=== PATIENT | male | born 1990 | race Caucasian/White ===

== ENCOUNTER 2017-10-10 14:55 | Observation (INO) | payer MEDICAID, OTHER ==
--- NOTE | 2017-10-10 16:34 | ED PDOC ---
HPI: Psych/Substance Abuse Time Seen by Provider: 10/10/17 15:12 Chief Complaint (Nursing): Alcohol Ingestion Chief Complaint (Provider): Alcohol Ingestion History Per: Patient History/Exam Limitations: no limitations Modifying Factor(s): Alcohol Additional Complaint(s): 27 y/o male is brought to the ED for alcohol intoxication. Patient admits to drinking heavily since last night up until this morning. He states thata he is "good". Denies trauma, injury, headache, dizziness, abdominal pain, shortness of breath, nausea or any further medical complaints. Past Medical History Reviewed: Historical Data, Nursing Documentation, Vital Signs Vital Signs: Last Vital Signs Temp 97.8 F 10/10/17 14:57 Pulse 88 10/10/17 14:57 Resp 20 10/10/17 14:57 BP 154/1 H 10/10/17 14:57 Pulse Ox 98 10/10/17 14:57 - Medical History PMH: Denies: Diabetes, Hepatitis, HIV, HTN, Seizures, Sexually Transmitted Disease - Surgical History Surgical History: Cholecystectomy - Family History Family History: States: Unknown Family Hx - Social History Current smoker - smoking cessation education provided: No (Former Smoker) Alcohol: None Drugs: Other (Marijuana) - Immunization History Hx Influenza Vaccination: No - Home Medications Home Medications: Ambulatory Orders Medication Instructions Recorded Labetalol [Trandate] 100 mg PO Q12H #60 tab 11/11/15 - Allergies Allergies/Adverse Reactions: Allergies Allergy/AdvReac Type Severity Reaction Status Date / Time No Known Allergies Allergy Verified 10/10/17 14:57 Review of Systems ROS Statement: Except As Marked, All Systems Reviewed And Found Negative (As per HPI, otherwise negative) Neurological: Positive for: Other (Alcohol intoxication) Physical Exam - Reviewed Nursing Documentation Reviewed: Yes Vital Signs Reviewed: Yes - Physical Exam Comments: GENERAL APPEARANCE: Patient is awake, alert, in no acute distress. Patient smells of alcohol. SKIN: Warm, dry; (-) cyanosis, (-) rash. (-) Abrasion to R [employer]. EYES: (-) conjunctival pallor, (-) scleral icterus. ENMT: Mucous membranes are moist. Airway patent: (-) stridor. NECK: (-) tenderness, (-) stiffness, (-) meningismus, (-) lymphadenopathy. CHEST AND RESPIRATORY: (-) accessory muscle use. Lungs: (-) rales, (-) rhonchi, (-) wheezes, (-) rub; breath sounds equal bilaterally. HEART AND CARDIOVASCULAR: (-) irregularity; (-) murmur, (-) gallop, (-) rub. ABDOMEN AND GI: Soft; (-) tenderness, (-) guarding; (-) organomegaly; (-) mass. EXTREMITIES: (-) deformity, (-) tenderness, (+) FROM, (+) distal pulses, (+) normal cap refill. NEURO AND PSYCH: Mental status as above; (-) focal findings. - Laboratory Results Result Diagrams: 10/10/17 17:15 10/10/17 17:15 - ECG O2 Sat by Pulse Oximetry: 98 (RA) Pulse Ox Interpretation: Normal Medical Decision Making Medical Decision Making: Time: 15:30 Initial Impression: Alcohol Intoxication Plan: CT Head w/o contrast Alcohol serum Drug screen Zofran 8mg IM Finger stick (glucose, blood, POC) Time: 15:50 --FS 96 --As farm operations technical director was drawing labs on patient, the farm operations technical director observed the patient to have an episode of vomiting --Patient was sitting up and vomited on himself and the floor --Patient states that he feels better, no longer nauseous and no abdominal pain --Patient is medicated with Zofran 8mg IM --Alcohol level 316 Time: 16:[address] FINDINGS: HEMORRHAGE: No intracranial hemorrhage. BRAIN: No mass effect or edema. No atrophy or chronic microvascular ischemic changes. VENTRICLES: Unremarkable. No hydrocephalus. CALVARIUM: Unremarkable. PARANASAL SINUSES: Unremarkable as visualized. No significant inflammatory changes. MASTOID AIR CELLS: Unremarkable as visualized. No inflammatory changes. OTHER FINDINGS: None. IMPRESSION: No acute intracranial abnormalities. No significant findings to account for the clinical presentation. Time: 16:46 --Patient vomitted when returned from CT, labs ordered, banana bag and Zofran IV --Patient is continuing to get up and ambulate in ER, however his gait is still unsteady --Will have to place him on one on one observation for safety Time: 19:45 --Labs reviewed : WBC 16.4, Na 151, AST 182/ALT 106, Lipase 3771. --On re-evaluation, patient more awake, alert, no slurred speech, reports no nausea or abdominal pain at this time. States that he drinks every weekend, but admits to drinking heavily this weekend, denies any h/o prior pancreatitis. On exam, abdomen remains soft with no tenderness to deep palpation, no guarding and no rebound. --Case endorsed to ER MD Dr. Arzate. Plan to admit patient under the hospitalist service to tele. Scribe Attestation: Documented by Viola Pierce acting as a scribe for PA. DAVE Preciado PA-C Scribe Attestation: All medical record entries made by the Scribe were at my direction and personally dictated by me. I have reviewed the chart and agree that the record accurately reflects my personal performance of the history, physical exam, medical decision making, and the department course for this patient. I have also personally directed, reviewed, and agree with the discharge instructions and disposition. Disposition - Clinical Impression Clinical Impression: Alcohol intoxication, Acute alcoholic pancreatitis - Patient ED Disposition Is Patient to be Admitted: Yes Counseled Patient/Family Regarding: Studies Performed, Diagnosis - Disposition Disposition Time: 20:00 Condition: STABLE Forms: [employer] ([employer]) - PA / JAVA DEVELOPMENT TEAM LEAD / Resident Statement YAS has reviewed & agrees with the documentation as recorded. YAS has examined the patient and agrees with the treatment plan.
--- NOTE | 2017-10-10 16:42 | CT ---
PROCEDURE: CT HEAD WITHOUT CONTRAST. HISTORY: possible head injury COMPARISON: None available. TECHNIQUE: Axial computed tomography images were obtained through the head/brain without intravenous contrast. Radiation dose: Total exam DLP = 68928 mGy-cm. This CT exam was performed using one or more of the following dose reduction techniques: Automated exposure control, adjustment of the mA and/or kV according to patient size, and/or use of iterative reconstruction technique. FINDINGS: HEMORRHAGE: No intracranial hemorrhage. BRAIN: No mass effect or edema. No atrophy or chronic microvascular ischemic changes. VENTRICLES: Unremarkable. No hydrocephalus. CALVARIUM: Unremarkable. PARANASAL SINUSES: Unremarkable as visualized. No significant inflammatory changes. MASTOID AIR CELLS: Unremarkable as visualized. No inflammatory changes. OTHER FINDINGS: None. IMPRESSION: No acute intracranial abnormalities. No significant findings to account for the clinical presentation.
[2017-10-10] MEDS ORDERED: Multivitamin (MVI) 10 ML, Thiamine 100 MG, Folic Acid 1 MG in Dextrose 5%/0.45% NS 1,00... IV ONE (17:00)
[2017-10-10 17:42] LABS: ALB/GLOB RATIO 1.1 (1.0-2.1); ALBUMIN 4.7 g/dL (3.5-5.0); ALT/SGPT 106 U/L (21-72); AST/SGOT 182 U/L (17-59); BLOOD UREA NITROGEN 9 mg/dl (9-20); CALCIUM 9.4 mg/dL (8.4-10.2); GFR AFRICAN-AMERICAN > 60; GFR NON-AFRICAN AMERICAN > 60
[2017-10-10 17:50] LABS: BASO # 0.1 K/uL (0.0-0.2); BASO % 0.3 % (0.0-2.0); EOS % 0.3 % (0.0-4.0); HEMOGLOBIN 16.9 g/dL (12.0-18.0); LYMPH # 1.6 K/uL (1.0-4.3); LYMPH % 9.7 % (20.0-40.0); MEAN CELL VOLUME 89.4 fl (80.0-94.0); MEAN CORPUSCULAR HEMOGLOBIN 30.8 pg (27.0-31.0); MEAN CORPUSCULAR HGB CONC 34.5 g/dL (33.0-37.0); MEAN PLATELET VOLUME 9.1 fl (7.2-11.7); MONO # 0.7 K/uL (0.0-0.8); MONO % 4.3 % (0.0-10.0); NEUT % 85.4 % (50.0-75.0); NRBC % 0.2 % (0.0-0.0); PLATELET COUNT 326 K/uL (130-400); RBC 5.48 Mil/uL (4.40-5.90); RED CELL DISTRIBUTION WIDTH 12.7 % (11.5-14.5); WHITE BLOOD COUNT 16.4 K/uL (4.8-10.8)
[2017-10-10 17:53] LABS: LIPASE 3771 U/L (23-300)
[2017-10-10 18:31] LABS: BANDS 1 % (0-2); LYMPHOCYTE 10 % (20-50); MONOCYTE 2 % (0-10); NEUTROPHIL 86 % (42-75); PLATELET ESTIMATE NORMAL (NORMAL); REACTIVE LYMPHOCYTES 1 % (0-0); TOTAL CELLS COUNTED 100
[2017-10-10] MEDS ORDERED: Lactated Ringer's 1,000 ML IV STA ×3 (19:45→19:46)
[2017-10-10] MEDS ORDERED: Piperacillin/Tazobact 3.375 GM in Sodium Chloride 0.9% 100 ML IV STA (19:52)
--- NOTE | 2017-10-10 19:55 | ED PDOC ---
- Laboratory Results Result Diagrams: 10/11/17 04:25 10/11/17 04:25 - ECG O2 Sat by Pulse Oximetry: 98 (RA) Pulse Ox Interpretation: Normal - Critical Care Total Time (In Min): 60 Documented Critical Care: Time excludes all time spent performint seperately billable procedures Medical Decision Making Medical Decision Making: Time: 1899 Patient signed out to me by Dr. Dela Cruz pending labs. Time: 1952 Labs reviewed and lipase is markedly elevated. Labs, blood culture, 3L LR, Zosyn IV, and ABG ordered. Time: [address] Dubon, hospitalist x ray electronics wireman who will admit patient for acute pancreatitis and alcohol intoxication. Time: [address] Todd who is covering Dr. Dupont (GI), who agrees with management plan. Also advised no indication for Zosyn or imaging at present. Recommended protonix, so [address] Todd to evaluate patient tomorrow. Scribe Attestation: Documented by Lisette Powell acting as a scribe for Miguel Ángel Arzate MD. Provider Attestation: All medical record entries made by the Scribe were at my direction and personally dictated by me. I have reviewed the chart and agree that the record accurately reflects my personal performance of the history, physical exam, medical decision making, and the department course for this patient. I have also personally directed, reviewed, and agree with the discharge instructions and disposition. Disposition - Clinical Impression Clinical Impression: Alcohol intoxication, Acute alcoholic pancreatitis - POA Present On Arrival: None - Disposition Disposition: Routine/Home Disposition Time: 19:00 Condition: STABLE
--- NOTE | 2017-10-10 20:27 | CP.PCM.HP ---
History of Present Illness - History of Present Illness History of Present Illness: PMD: None Chief Complaint: Alcohol Intoxication/ Amnesia The patient was seen and examined in the ED HPI: 27 years old male with hx of liver problem and Alcohol abuse, was brought to the ED for Alcohol Intoxication. He apparently was drinking Alcohol from the pervious night. The patient cannot remember how he got to the ED, nor can he recall the bruise at the right side of the face. He referred no headache , dizziness, Chest pain nor palpitation. In the ED he had an episode of significant non bloody vomiting. His lipase was elevated at 3771 and Alcohol 316 PMH: Vitiligo; liver problem; Febril seizure as a child; PSH: Cholecystectomy 2011 [facility]; Former Smoker; Alcohol Abuse; Marijuana use; live with family FH: Father and grandmother with Dm Allergies: NKDA Medication: denies Present on Admission - Present on Admission Any Indicators Present on Admission: No History of DVT/PE: No History of Uncontrolled Diabetes: No Urinary Catheter: No Decubitus Ulcer Present: No Review of Systems - Constitutional Constitutional: absent: Anorexia, Chills, Fever, Headache - EENT Eyes: absent: Diplopia, Photophobia, Requires Corrective Lenses, Sees Flashes, Loss of Vision Ears: absent: Decreased Hearing, Ear Discharge Nose/Mouth/Throat: absent: Epistaxis, Nasal Congestion, Sinus Pain, Sinus Pressure - Cardiovascular Cardiovascular: absent: Chest Pain, Dyspnea, Edema - Respiratory Respiratory: absent: Cough, Dyspnea, Wheezing, Stridor - Gastrointestinal Gastrointestinal: Nausea, Vomiting. absent: Constipation, Diarrhea - Genitourinary Genitourinary: absent: Dysuria, Flank Pain, Hematuria, Urinary Frequency - Musculoskeletal Musculoskeletal: absent: Arthralgias, Back Pain, Muscle Weakness - Integumentary Integumentary: absent: Pruritus, Rash, Skin Ulcer, Sores, Striae, Swelling - Neurological Neurological: absent: Confusion, Focal Weakness, Headaches, Vertigo - Psychiatric Psychiatric: absent: Anxiety, Depression, Panic Attacks - Endocrine Endocrine: absent: Palpitations, Polydipsia, Polyphagia, Polyuria - Hematologic/Lymphatic Hematologic: absent: Easy Bleeding, Easy Bruising Past Patient History - Past Medical History & Family History Past Medical History?: No - Past Social History Smoking Status: Never Smoked Chewing Tobacco Use: No Cigar Use: No Alcohol: Social Drugs: Cannabis, Other (Marijuana) Home Situation {Lives}: With Family - CARDIAC Hx Cardiac Disorders: No Hx Hypertension: No - PULMONARY Hx Respiratory Disorders: No Hx Tuberculosis: No - NEUROLOGICAL Hx Neurological Disorder: No Hx Seizures: No - HEENT Hx HEENT Problems: No - RENAL Hx Chronic Kidney Disease: No - HEMATOLOGICAL/ONCOLOGICAL Hx Blood Disorders: No Hx Human Immunodeficiency Virus (HIV): No - INTEGUMENTARY Hx Dermatological Problems: No - MUSCULOSKELETAL/RHEUMATOLOGICAL Hx Falls: No - GASTROINTESTINAL Hx Gastrointestinal Disorders: Yes Other/Comment: Liver problem - GENITOURINARY/GYNECOLOGICAL Hx Genitourinary Disorders: No Hx Sexually Transmitted Disorders: No - PSYCHIATRIC Hx Psychophysiologic Disorder: No Hx Substance Use: Yes ([facility]) - SURGICAL HISTORY Hx Cholecystectomy: Yes - ANESTHESIA Hx Anesthesia: Yes Hx Anesthesia Reactions: No Meds Allergies/Adverse Reactions: Allergies Allergy/AdvReac Type Severity Reaction Status Date / Time No Known Allergies Allergy Verified 10/10/17 14:57 Physical Exam - Constitutional Appears: No Acute Distress - Head Exam Additional comments: Bruise with edema at right side of face. - Eye Exam Eye Exam: EOMI, Normal appearance Pupil Exam: NORMAL ACCOMODATION, PERRL - ENT Exam ENT Exam: Mucous Membranes Moist, Normal Exam - Neck Exam Neck exam: Positive for: Full Rom, Normal Inspection. Negative for: Lymphadenopathy, Tenderness - Respiratory Exam Respiratory Exam: Clear to Auscultation Bilateral. absent: Rales, Rhonchi, Wheezes - Cardiovascular Exam Cardiovascular Exam: REGULAR RHYTHM, RRR, +S1, +S2 - GI/Abdominal Exam GI & Abdominal Exam: Normal Bowel Sounds, Soft. absent: Mass, Organomegaly, Tenderness - Rectal Exam Rectal Exam: Deferred - Extremities Exam Extremities exam: Positive for: normal inspection. Negative for: calf tenderness, pedal edema - Back Exam Back exam: NORMAL INSPECTION. absent: CVA tenderness (L), CVA tenderness (R) - Neurological Exam Neurological exam: Alert, CN II-XII Intact, Oriented x3, Reflexes Normal - Psychiatric Exam Psychiatric exam: Normal Affect, Normal Mood - Skin Skin Exam: Dry, Intact, Normal Color, Warm Results - Vital Signs Recent Vital Signs: Last Vital Signs Temp 97.8 F 10/10/17 14:57 Pulse 88 10/10/17 14:57 Resp 20 10/10/17 14:57 BP 154/1 H 10/10/17 14:57 Pulse Ox 98 10/10/17 20:17 - Labs Result Diagrams: 10/10/17 17:15 10/10/17 17:15 Labs: Laboratory Results - last 24 hr 10/10/17 10/10/17 10/10/17 15:27 15:30 17:15 WBC RBC Hgb Hct MCV MCH MCHC RDW Plt Count MPV Neut % (Auto) Lymph % (Auto) [place] % (Auto) Eos % (Auto) Baso % (Auto) Neut # (Auto) Lymph # (Auto) [place] # (Auto) Eos # (Auto) Baso # (Auto) Neutrophils % (Manual) Band Neutrophils % Lymphocytes % (Manual) Reactive Lymphs % Monocytes % (Manual) Platelet Estimate RBC Morphology Sodium 151 H Potassium 3.8 Chloride 106 Carbon Dioxide 23 Anion Gap 26 H BUN 9 Creatinine 0.6 L Est GFR ( Amer) > 60 Est GFR (Non-Af Amer) > 60 POC Glucose (mg/dL) 96 Random Glucose 120 H Calcium 9.4 Total Bilirubin 0.6 AST 182 H ALT 106 H Alkaline Phosphatase 116 Total Protein 8.9 H Albumin 4.7 Globulin 4.2 H Albumin/Globulin Ratio 1.1 Lipase 3771 H Alcohol, Quantitative 316 H* 10/10/17 17:15 WBC 16.4 H RBC 5.48 Hgb 16.9 Hct 49.0 MCV 89.4 MCH 30.8 MCHC 34.5 RDW 12.7 Plt Count 326 MPV 9.1 Neut % (Auto) 85.4 H Lymph % (Auto) 9.7 L [place] % (Auto) 4.3 Eos % (Auto) 0.3 Baso % (Auto) 0.3 Neut # (Auto) 14.0 H Lymph # (Auto) 1.6 [place] # (Auto) 0.7 Eos # (Auto) 0.0 Baso # (Auto) 0.1 Neutrophils % (Manual) 86 H Band Neutrophils % 1 Lymphocytes % (Manual) 10 L Reactive Lymphs % 1 H Monocytes % (Manual) 2 Platelet Estimate Normal RBC Morphology Normal Sodium Potassium Chloride Carbon Dioxide Anion Gap BUN Creatinine Est GFR ( Amer) Est GFR (Non-Af Amer) POC Glucose (mg/dL) Random Glucose Calcium Total Bilirubin AST ALT Alkaline Phosphatase Total Protein Albumin Globulin Albumin/Globulin Ratio Lipase Alcohol, Quantitative Assessment & Plan - Assessment and Plan (Free Text) Assessment: #. Alcohol Intoxication #. Hyperlipasemia #. Leukocytosis #. Hypernatremia Plan: 27 years old male with hx of liver problem and Alcohol abuse, was brought to the ED for Alcohol Intoxication. The patient cannot remember how he got to the ED, nor can he recall the bruise at the right side of the face. In the ED he had an episode of significant non bloody vomiting. His lipase was elevated at 3771 and Alcohol 316 #. Hyperlipasemia most probably secondary to Pancretitis which could be subacute as the patient has no abdominal pain at present. There is no hx of Gastro duodenal pathology nor of renal failure - consult Gastroenteriology Dr Del Castillo for Dr Dupont - IV fluidD5/0.45 at 200mls/hr - Follow Lipase/ amylase/Lipid panel #. Alcohol Intoxication. follow up for Alcohol withdrawal - Banana Bag which includes Folic Acid, Thiamine, multivitamin - Ativan for Agitation - IV fluids #. Head trauma with probably concussion - CT head showed no intracraneal abnormality - Pain management if needed #. Leukocytosis most likely reactive - follow CBC #. Hypernatremia could be due to dehydration - IV Fluid with D5/045NS - follow electrolytes #. DVT prophylaxis with Lovenox #. Code Status: Full - Date & Time Date: 10/10/17 Time: 20:27
[2017-10-10 20:39] LABS: INR 0.9 (0.9-1.2); PARTIAL THROMBOPLASTIN TIME 28.6 Seconds (25.6-37.1)
[2017-10-10 20:49] LABS: AMYLASE 98 U/L (30-110); HDL CHOLESTEROL 40 MG/DL (30-70)
[2017-10-10 21:00] LABS: LDL CHOLESTEROL 139 mg/dL (0-129)
[2017-10-10] MEDS: Potassium Ch 20mEq in D5-1/2NS 1,000 ML IV SCH (23:17)
[2017-10-11] MEDS: Potassium Ch 20mEq in D5-1/2NS 1,000 ML IV SCH (04:15)
[2017-10-11 05:53] LABS: BASO # 0.1 K/uL (0.0-0.2); BASO % 0.7 % (0.0-2.0); EOS # 0.1 K/uL (0.0-0.7); EOS % 1.1 % (0.0-4.0); HEMOGLOBIN 15.5 g/dL (12.0-18.0); LYMPH # 2.6 K/uL (1.0-4.3); LYMPH % 29.1 % (20.0-40.0); MEAN CELL VOLUME 90.9 fl (80.0-94.0); MEAN CORPUSCULAR HEMOGLOBIN 31.1 pg (27.0-31.0); MEAN CORPUSCULAR HGB CONC 34.2 g/dL (33.0-37.0); MEAN PLATELET VOLUME 9.1 fl (7.2-11.7); MONO # 0.5 K/uL (0.0-0.8); MONO % 5.7 % (0.0-10.0); NEUT # 5.6 K/uL (1.8-7.0); NEUT % 63.4 % (50.0-75.0); RBC 4.97 Mil/uL (4.40-5.90); RED CELL DISTRIBUTION WIDTH 12.7 % (11.5-14.5); WHITE BLOOD COUNT 8.9 K/uL (4.8-10.8)
[2017-10-11 05:57] LABS: ALB/GLOB RATIO 1.1 (1.0-2.1); ALBUMIN 3.9 g/dL (3.5-5.0); ALT/SGPT 194 U/L (21-72); AST/SGOT 174 U/L (17-59); BLOOD UREA NITROGEN 7 mg/dl (9-20); CALCIUM 8.6 mg/dL (8.4-10.2); GFR AFRICAN-AMERICAN > 60; GFR NON-AFRICAN AMERICAN > 60; LIPASE 386 U/L (23-300)
[2017-10-11 08:13] LABS: HDL CHOLESTEROL 36 MG/DL (30-70)
[2017-10-11 08:23] LABS: LDL CHOLESTEROL 112 mg/dL (0-129)
[2017-10-11] MEDS ORDERED: Pantoprazole 40 mg EC Tab PO SCH (09:00)
[2017-10-11] MEDS ORDERED: Multivitamin With Minerals Tab PO SCH (09:00)
[2017-10-11] MEDS ORDERED: Enoxaparin 40 mg Syringe SC SCH (09:00)
--- NOTE | 2017-10-11 10:16 | CP.PCM.CON ---
History of Present Illness - History of Present Illness History of Present Illness: GI Fellow PGY 4 Consult Note This is a 27 years old male with hx of Alcohol abuse who was brought to the ED for Alcohol Intoxication. He reports drinking the night prior and drank 3-4 vodka 1 pints. The patient cannot remember how he got to the ED, nor can he recall the bruise at the right side of the face. In the ED he had an episode of non bloody vomiting. His lipase was elevated at 3771 and Alcohol level 316. Pt denies any abdominal pain at this time with no more nausea or vomiting. He reports a hx of alcohol abuse for many years and dinks hard liquor only, he reports he quit drinking 10months ago until last night, no detox program. No prior hx of GI bleed, jaundice, liver failure, or admission for acute pancreatitis but has been admitted for intoxication. ROS: A 12pt ROS was negative except as above PMH: As stated in HPI PSH: Cholecystectomy 2011 SH: Former Smoker; Alcohol Abuse; Marijuana use FH: DM Past Patient History - Past Medical History & Family History Past Medical History?: No - Past Social History Smoking Status: Never Smoked Chewing Tobacco Use: No Cigar Use: No Alcohol: Social Drugs: Cannabis, Other (Marijuana) Home Situation {Lives}: With Family - CARDIAC Hx Cardiac Disorders: No Hx Hypertension: No - PULMONARY Hx Respiratory Disorders: No Hx Tuberculosis: No - NEUROLOGICAL Hx Neurological Disorder: No Hx Seizures: No - HEENT Hx HEENT Problems: No - RENAL Hx Chronic Kidney Disease: No - HEMATOLOGICAL/ONCOLOGICAL Hx Blood Disorders: No Hx Human Immunodeficiency Virus (HIV): No - INTEGUMENTARY Hx Dermatological Problems: No - MUSCULOSKELETAL/RHEUMATOLOGICAL Hx Falls: No - GASTROINTESTINAL Hx Gastrointestinal Disorders: Yes Other/Comment: Liver problem - GENITOURINARY/GYNECOLOGICAL Hx Genitourinary Disorders: No Hx Sexually Transmitted Disorders: No - PSYCHIATRIC Hx Psychophysiologic Disorder: No Hx Substance Use: Yes (marajuana) - SURGICAL HISTORY Hx Cholecystectomy: Yes - ANESTHESIA Hx Anesthesia: Yes Hx Anesthesia Reactions: No Meds Allergies/Adverse Reactions: Allergies Allergy/AdvReac Type Severity Reaction Status Date / Time No Known Allergies Allergy Verified 10/10/17 14:57 - Medications Medications: Current Medications Enoxaparin Sodium (Lovenox) 40 mg SC DAILY [facility] PRN Reason: Protocol Folic Acid (Folic Acid) 1 mg PO DAILY [facility] Lactated Ringer's (Lactated Ringer's) 1,000 mls @ 150 mls/hr IV .Q6H40M [facility] Lorazepam (Ativan) 1 mg IVP Q6 PRN PRN Reason: Agitation Multivitamins/Minerals (Therapeutic-M Tab) 1 tab PO DAILY [facility] Ondansetron HCl (Zofran Inj) 4 mg IVP Q4 PRN PRN Reason: Nausea/Vomiting Pantoprazole Sodium (Protonix Ec Tab) 40 mg PO DAILY [facility] Thiamine HCl (Vitamin B1 Tab) 100 mg PO DAILY [facility] Physical Exam - Constitutional Appears: Non-toxic, No Acute Distress - Head Exam Head Exam: ATRAUMATIC, NORMAL INSPECTION, NORMOCEPHALIC - Eye Exam Eye Exam: EOMI, Normal appearance, PERRL Pupil Exam: PERRL - ENT Exam ENT Exam: Mucous Membranes Moist - Neck Exam Neck exam: Positive for: Full Rom, Normal Inspection - Respiratory Exam Respiratory Exam: Clear to Auscultation Bilateral, NORMAL BREATHING PATTERN - Cardiovascular Exam Cardiovascular Exam: REGULAR RHYTHM, RRR, +S1, +S2 - GI/Abdominal Exam GI & Abdominal Exam: Normal Bowel Sounds, Soft. absent: Distended, Firm, Guarding, Organomegaly, Tenderness - Rectal Exam Rectal Exam: Deferred - Extremities Exam Extremities exam: Positive for: full ROM, normal inspection. Negative for: calf tenderness, pedal edema - Back Exam Back exam: NORMAL INSPECTION - Neurological Exam Neurological exam: Alert, Oriented x3 - Psychiatric Exam Psychiatric exam: Normal Affect, Normal Mood - Skin Skin Exam: Dry, Intact, Normal Color, Warm Results - Vital Signs Recent Vital Signs: Last Vital Signs Temp 98.4 F 10/11/17 08:36 Pulse 76 10/11/17 08:36 Resp 18 10/11/17 08:36 BP 134/82 10/11/17 08:36 Pulse Ox 98 10/11/17 08:36 - Labs Result Diagrams: 10/11/17 04:25 10/11/17 04:25 Labs: Laboratory Results - last 24 hr 10/10/17 10/10/17 10/10/17 15:27 15:30 17:15 WBC RBC Hgb Hct MCV MCH MCHC RDW Plt Count MPV Neut % (Auto) Lymph % (Auto) [place] % (Auto) Eos % (Auto) Baso % (Auto) Neut # (Auto) Lymph # (Auto) [place] # (Auto) Eos # (Auto) Baso # (Auto) Neutrophils % (Manual) Band Neutrophils % Lymphocytes % (Manual) Reactive Lymphs % Monocytes % (Manual) Platelet Estimate RBC Morphology PT INR APTT Sodium 151 H Potassium 3.8 Chloride 106 Carbon Dioxide 23 Anion Gap 26 H BUN 9 Creatinine 0.6 L Est GFR ( Amer) > 60 Est GFR (Non-Af Amer) > 60 POC Glucose (mg/dL) 96 Random Glucose 120 H Lactic Acid Calcium 9.4 Phosphorus Magnesium Total Bilirubin 0.6 AST 182 H ALT 106 H Alkaline Phosphatase 116 Lactate Dehydrogenase Total Protein 8.9 H Albumin 4.7 Globulin 4.2 H Albumin/Globulin Ratio 1.1 Triglycerides Cholesterol LDL Cholesterol Direct HDL Cholesterol Amylase Lipase 3771 H Alcohol, Quantitative 316 H* 10/10/17 10/10/17 10/10/17 17:15 20:05 20:05 WBC 16.4 H RBC 5.48 Hgb 16.9 Hct 49.0 MCV 89.4 MCH 30.8 MCHC 34.5 RDW 12.7 Plt Count 326 MPV 9.1 Neut % (Auto) 85.4 H Lymph % (Auto) 9.7 L [place] % (Auto) 4.3 Eos % (Auto) 0.3 Baso % (Auto) 0.3 Neut # (Auto) 14.0 H Lymph # (Auto) 1.6 [place] # (Auto) 0.7 Eos # (Auto) 0.0 Baso # (Auto) 0.1 Neutrophils % (Manual) 86 H Band Neutrophils % 1 Lymphocytes % (Manual) 10 L Reactive Lymphs % 1 H Monocytes % (Manual) 2 Platelet Estimate Normal RBC Morphology Normal PT 10.0 INR 0.9 APTT 28.6 Sodium Potassium Chloride Carbon Dioxide Anion Gap BUN Creatinine Est GFR ( Amer) Est GFR (Non-Af Amer) POC Glucose (mg/dL) Random Glucose Lactic Acid 1.6 Calcium Phosphorus Magnesium Total Bilirubin AST ALT Alkaline Phosphatase Lactate Dehydrogenase Total Protein Albumin Globulin Albumin/Globulin Ratio Triglycerides Cholesterol LDL Cholesterol Direct HDL Cholesterol Amylase Lipase Alcohol, Quantitative 10/10/17 10/10/17 10/11/17 20:05 20:35 04:25 WBC 8.9 RBC 4.97 Hgb 15.5 Hct 45.2 MCV 90.9 MCH 31.1 H MCHC 34.2 RDW 12.7 Plt Count 268 MPV 9.1 Neut % (Auto) 63.4 Lymph % (Auto) 29.1 [place] % (Auto) 5.7 Eos % (Auto) 1.1 Baso % (Auto) 0.7 Neut # (Auto) 5.6 Lymph # (Auto) 2.6 [place] # (Auto) 0.5 Eos # (Auto) 0.1 Baso # (Auto) 0.1 Neutrophils % (Manual) Band Neutrophils % Lymphocytes % (Manual) Reactive Lymphs % Monocytes % (Manual) Platelet Estimate RBC Morphology PT INR APTT Sodium Potassium Chloride Carbon Dioxide Anion Gap BUN Creatinine Est GFR ( Amer) Est GFR (Non-Af Amer) POC Glucose (mg/dL) Random Glucose Lactic Acid Calcium Phosphorus Magnesium Total Bilirubin AST ALT Alkaline Phosphatase Lactate Dehydrogenase 971 H Total Protein Albumin Globulin Albumin/Globulin Ratio Triglycerides 660 H Cholesterol 243 H LDL Cholesterol Direct 139 H HDL Cholesterol 40 Amylase 98 Lipase Alcohol, Quantitative 10/11/17 10/11/17 04:25 07:49 WBC RBC Hgb Hct MCV MCH MCHC RDW Plt Count MPV Neut % (Auto) Lymph % (Auto) [place] % (Auto) Eos % (Auto) Baso % (Auto) Neut # (Auto) Lymph # (Auto) [place] # (Auto) Eos # (Auto) Baso # (Auto) Neutrophils % (Manual) Band Neutrophils % Lymphocytes % (Manual) Reactive Lymphs % Monocytes % (Manual) Platelet Estimate RBC Morphology PT INR APTT Sodium 145 Potassium 3.8 Chloride 103 Carbon Dioxide 24 Anion Gap 22 H BUN 7 L Creatinine 0.7 L Est GFR ( Amer) > 60 Est GFR (Non-Af Amer) > 60 POC Glucose (mg/dL) Random Glucose 119 H Lactic Acid Calcium 8.6 Phosphorus 4.0 Magnesium 1.5 L Total Bilirubin 0.6 AST 174 H ALT 194 H D Alkaline Phosphatase 84 Lactate Dehydrogenase Total Protein 7.4 Albumin 3.9 Globulin 3.5 Albumin/Globulin Ratio 1.1 Triglycerides 186 H D Cholesterol 183 LDL Cholesterol Direct 112 HDL Cholesterol 36 Amylase Lipase 386 H Alcohol, Quantitative 67 H Assessment & Plan - Assessment and Plan (Free Text) Assessment: This is a 37yM with pmhx of arthritis, HTN, sarcoidosis presenting with complaints of epigastric abdominal pain. 1. Acute pancreatitis-alcohol induced 2. Hx of alcohol abuse Plan: -Continue supportive care with pain control and anti-emetics -Pt with no abdominal pain -Elevated lipase maybe secondary to acute pancreatits from alcohol abuse and chronic alcohol use -Elevated lipase can be multifactorial, will order UDS to r/o any drug use -Triglycerides levels not too elevated -No indication to trend lipase levels -Monitor CBC and CMP to trend BUN/HCT -Aggressive IVF hydration with LR@150cc/hr -Advance to clear liquid diet and regular diet as tolerated -Alcohol cessation counseling provided to pt -Continue folate and thiamine, monitor for withdrawal -No plan for endoscopic evaluation -Will continue to follow closely
--- NOTE | 2017-10-11 12:06 | US ---
HISTORY: pain COMPARISON: None. TECHNIQUE: Sonographic evaluation of the abdomen. FINDINGS: LIVER: Measures 17.9 cm. Diffusely increased echogenicity of the liver parenchyma. Consistent with fatty infiltration. Smooth contour. No mass. No biliary dilatation. Normal hepatopetal portal venous flow demonstrated. GALLBLADDER: Status post cholecystectomy COMMON BILE DUCT: Measures 7 mm. No stones. No dilatation. PANCREAS: Unremarkable as visualized. No mass. No ductal dilatation. RIGHT KIDNEY: Measures 11.2cm. Normal echogenicity. No calculus, mass, or hydronephrosis. LEFT KIDNEY: Measures 10.8cm. Normal echogenicity. No calculus, mass, or hydronephrosis. SPLEEN: Normal in size and contour. No mass. AORTA: No aneurysmal dilatation. IVC: Unremarkable. OTHER FINDINGS: None. IMPRESSION: Diffuse fatty infiltration of the liver. Status post cholecystectomy. No additional abnormality.
[2017-10-11] MEDS: Lactated Ringer's 1,000 ML IV SCH ×2 (12:11→17:43)
[2017-10-11 12:42] LABS: HEPATITIS B SURFACE AG Negative (NEGATIVE)
[2017-10-11 12:48] LABS: HEPATITIS A IGM NEGATIVE (NEGATIVE); HEPATITIS B CORE AB NEGATIVE (NEGATIVE)
[2017-10-11 12:53] VITALS: O2SAT 98
[2017-10-11 12:59] LABS: HEPATITIS C ANTIBODY NEGATIVE (NEGATIVE)
[2017-10-11 15:47] LABS: BARBITURATES, UR NEGATIVE (NEGATIVE); BENZODIAZEPINES, UR NEGATIVE (NEGATIVE); OPIATES, UR NEGATIVE (NEGATIVE); PHENCYCLIDINE, UR NEGATIVE (NEGATIVE)
[2017-10-11 16:32] VITALS: BP 149/84; PULSE 65; RESP 16; TEMP 98.8
--- NOTE | 2017-10-11 18:34 | CP.PCM.DIS ---
Provider - Provider Date of Admission: 10/10/17 19:54 Attending physician: Urbano Dubon Consults: GI : DR Dupont Time Spent in preparation of Discharge (in minutes): 30 Diagnosis - Discharge Diagnosis (1) Elevated lipase Status: Acute (2) Alcoholic pancreatitis Status: Suspected Comment: prob not acute- (3) Alcohol intoxication Status: Acute (4) Cannabis abuse Status: Acute (5) Hypertension Status: Chronic (6) Pancreatitis Status: Acute Hospital Course - Lab Results Lab Results: Most Recent Lab Values WBC 8.9 K/uL (4.8-10.8) 10/11/17 04:25 RBC 4.97 Mil/uL (4.40-5.90) 10/11/17 04:25 Hgb 15.5 g/dL (12.0-18.0) 10/11/17 04:25 Hct 45.2 % (35.0-51.0) 10/11/17 04:25 MCV 90.9 fl (80.0-94.0) 10/11/17 04:25 MCH 31.1 pg (27.0-31.0) H 10/11/17 04:25 MCHC 34.2 g/dL (33.0-37.0) 10/11/17 04:25 RDW 12.7 % (11.5-14.5) 10/11/17 04:25 Plt Count 268 K/uL (130-400) 10/11/17 04:25 MPV 9.1 fl (7.2-11.7) 10/11/17 04:25 Neut % (Auto) 63.4 % (50.0-75.0) 10/11/17 04:25 Lymph % (Auto) 29.1 % (20.0-40.0) 10/11/17 04:25 [place] % (Auto) 5.7 % (0.0-10.0) 10/11/17 04:25 Eos % (Auto) 1.1 % (0.0-4.0) 10/11/17 04:25 Baso % (Auto) 0.7 % (0.0-2.0) 10/11/17 04:25 Neut # (Auto) 5.6 K/uL (1.8-7.0) 10/11/17 04:25 Lymph # (Auto) 2.6 K/uL (1.0-4.3) 10/11/17 04:25 [place] # (Auto) 0.5 K/uL (0.0-0.8) 10/11/17 04:25 Eos # (Auto) 0.1 K/uL (0.0-0.7) 10/11/17 04:25 Baso # (Auto) 0.1 K/uL (0.0-0.2) 10/11/17 04:25 Neutrophils % (Manual) 86 % (42-75) H 10/10/17 17:15 Band Neutrophils % 1 % (0-2) 10/10/17 17:15 Lymphocytes % (Manual) 10 % (20-50) L 10/10/17 17:15 Reactive Lymphs % 1 % (0-0) H 10/10/17 17:15 Monocytes % (Manual) 2 % (0-10) 10/10/17 17:15 Platelet Estimate Normal (NORMAL) 10/10/17 17:15 RBC Morphology Normal (NORMAL) 10/10/17 17:15 PT 10.0 Seconds (9.8-13.1) 10/10/17 20:05 INR 0.9 (0.9-1.2) 10/10/17 20:05 APTT 28.6 Seconds (25.6-37.1) 10/10/17 20:05 Sodium 145 mmol/l (132-148) 10/11/17 04:25 Potassium 3.8 MMOL/L (3.6-5.0) 10/11/17 04:25 Chloride 103 mmol/L (98-107) 10/11/17 04:25 Carbon Dioxide 24 mmol/L (22-30) 10/11/17 04:25 Anion Gap 22 (10-20) H 10/11/17 04:25 BUN 7 mg/dl (9-20) L 10/11/17 04:25 Creatinine 0.7 mg/dl (0.8-1.5) L 10/11/17 04:25 Est GFR ( Amer) > 60 10/11/17 04:25 Est GFR (Non-Af Amer) > 60 10/11/17 04:25 POC Glucose (mg/dL) 96 mg/dL (65-110) 10/10/17 15:27 Random Glucose 119 mg/dL (75-110) H 10/11/17 04:25 Lactic Acid 1.6 MMOL/L (0.7-2.1) 10/10/17 20:05 Calcium 8.6 mg/dL (8.4-10.2) 10/11/17 04:25 Phosphorus 4.0 mg/dl (2.5-4.5) 10/11/17 04:25 Magnesium 1.5 MG/DL (1.6-2.3) L 10/11/17 04:25 Total Bilirubin 0.6 mg/dl (0.2-1.3) 10/11/17 04:25 AST 174 U/L (17-59) H 10/11/17 04:25 ALT 194 U/L (21-72) H D 10/11/17 04:25 Alkaline Phosphatase 84 U/L (38-126) 10/11/17 04:25 Lactate Dehydrogenase 971 U/L (313-618) H 10/10/17 20:05 Total Protein 7.4 G/DL (6.3-8.2) 10/11/17 04:25 Albumin 3.9 g/dL (3.5-5.0) 10/11/17 04:25 Globulin 3.5 gm/dL (2.2-3.9) 10/11/17 04:25 Albumin/Globulin Ratio 1.1 (1.0-2.1) 10/11/17 04:25 Triglycerides 186 mg/DL (0-149) H D 10/11/17 07:49 Cholesterol 183 mg/dL (0-199) 10/11/17 07:49 LDL Cholesterol Direct 112 mg/dL (0-129) 10/11/17 07:49 HDL Cholesterol 36 MG/DL (30-70) 10/11/17 07:49 Amylase 98 U/L (30-110) 10/10/17 20:35 Lipase 386 U/L (23-300) H 10/11/17 04:25 Urine Opiates Screen Negative (NEGATIVE) 10/11/17 15:10 Urine Methadone Screen Negative (NEGATIVE) 10/11/17 15:10 Ur Barbiturates Screen Negative (NEGATIVE) 10/11/17 15:10 Ur Phencyclidine Scrn Negative (NEGATIVE) 10/11/17 15:10 Ur Amphetamines Screen Negative (NEGATIVE) 10/11/17 15:10 U Benzodiazepines Scrn Negative (NEGATIVE) 10/11/17 15:10 U Oth Cocaine Metabols Negative (NEGATIVE) 10/11/17 15:10 U Cannabinoids Screen Positive (NEGATIVE) H 10/11/17 15:10 Alcohol, Quantitative 67 mg/dl (0-10) H 10/11/17 04:25 Hepatitis A IgM Ab Negative (NEGATIVE) 10/11/17 04:25 Hep Bs Antigen Negative (NEGATIVE) 10/11/17 04:25 Hep B Core IgM Ab Negative (NEGATIVE) 10/11/17 04:25 Hepatitis C Antibody Negative (NEGATIVE) 10/11/17 04:25 - Hospital Course Hospital Course: 27 years old male with hx of HTN , was brought to the ED for Alcohol Intoxication. The patient cannot remember how he got to the ED, nor can he recall the bruise at the right side of the face. In the ED he had an episode of significant non bloody vomiting. His lipase was elevated at 3771 , Amylase was normal and Alcohol 316. Ct of the head was done : negative. Patient was admitted to Telemetry for monitoring. He was started on IVF hydration. He was also started on Banan bag - with MVI , Thiamine , Folate. Pt denies Alcohol abuse but admits to binge drinking - he claims his last drink prior to this was 10 months ago. He had no signs of Alcohol withdrawal. Pt denies abdominal pain however he vomited in the D. Rpt Lipase after a few hours went down from 3771s to 386. GI was consulted for the elevated Lipase. Abdominal Sonogram showed : fatty liver. Urine Tox : + for Cannabis. Pt was continued to IVF hydration. Diet gradually started . Pt tolerated PO diet . Gi cleared pt for discharge. 1. Elevated Lipase most probably secondary to Pancreatitis which could be subacute as the patient has no abdominal pain at present. There is no hx of Gastro duodenal pathology nor of renal failure\- IVF hydration -Lipase 3771 down to 386 , Amulase normal -GI consulted - discussed case kishore Dr Dupont- rec Abd Sono -Abd Sono : Fatty liver - Hepatitis panel: NEG 2. Alcohol Intoxication no signs of Alcohol withdrawal - Banana Bag which includes Folic Acid, Thiamine, multivitamin - Ativan for Agitation - IV fluids 3. Head trauma - CT head showed no intracranial abnormality - pt is stbale on his feet , no RIVERA, no dizziness 4. Leukocytosis most likely reactive - rpt CBC normal 5. Hypernatremia could be due to dehydration - IV Fluid with D5/045NS 6. HTN , chronic start low dose Norvasc pt was previously on Labetatolol but noncompliant #. DVT prophylaxis with Lovenox Discharge Exam - Head Exam Head Exam: NORMAL INSPECTION, NORMOCEPHALIC - Eye Exam Eye Exam: EOMI, Normal appearance, PERRL Pupil Exam: NORMAL ACCOMODATION - Neck Exam Neck exam: Full Rom - Respiratory Exam Respiratory Exam: NORMAL BREATHING PATTERN. absent: Respiratory Distress - Cardiovascular Exam Cardiovascular Exam: REGULAR RHYTHM, +S1, +S2 - GI/Abdominal Exam GI & Abdominal Exam: Normal Bowel Sounds, Soft. absent: Tenderness - Extremities Exam Extremities exam: full ROM, normal capillary refill, pedal pulses present - Back Exam Back exam: FULL ROM. absent: CVA tenderness (L), CVA tenderness (R) - Neurological Exam Neurological exam: Alert, CN II-XII Intact, Normal Gait, Oriented x3, Reflexes Normal - Psychiatric Exam Psychiatric exam: Normal Affect, Normal Mood - Skin Skin Exam: Dry, Normal Color, Warm Additional comments: multiple tattoos Discharge Plan - Discharge Medications Prescriptions: amLODIPine [Norvasc] 2.5 mg PO DAILY #30 tab Multimineral/Multivitamin [Therapeutic-M Tab] 1 tab PO DAILY #100 tab - Follow Up Plan Condition: STABLE Instructions: Pancreatitis (DC), Alcohol Abuse and Alcoholism (DC) Additional Instructions: follow up with pmd in 1 week Referrals: [facility] [place] [Outside] Conrado Dupont MD, PhD [Staff Provider] -
== END 2017-10-11 20:24 | disposition home or self-care (01) ==
LOC: H.ER 14:55 → H.ERHOLD 19:54 → INTOOBSV 19:54 → H.TEL 21:38
PROVIDERS: ADMIT Internal Medicine; ATTEND Internal Medicine
DX: R74.8 Abnormal levels of other serum enzymes (principal); K85.20 Alcohol induced acute pancreatitis without necrosis or infection; F10.129 Alcohol abuse with intoxication, unspecified; Y90.8 Blood alcohol level of 240 mg/100 ml or more; L80 Vitiligo; E87.0 Hyperosmolality and hypernatremia; Z87.891 Personal history of nicotine dependence; S09.90XA Unspecified injury of head, initial encounter; X58.XXXA Exposure to other specified factors, initial encounter; D72.829 Elevated white blood cell count, unspecified; M19.90 Unspecified osteoarthritis, unspecified site; I10 Essential (primary) hypertension; F12.10 Cannabis abuse, uncomplicated
CPT/HCPCS: 36415; 70450; 76700; 80053; 80061; 80074; 80320; 80324; 80345; 80346; 80349; 80353; 80358; 80361; 82150; 82948; 83605; 83615; 83690; 83735; 83992; 84100; 85025; 85610; 85730; 87040; 96372; 96374; 99285; C9113; G0378; J1650; J2405; J3411; J7042; J7120